=== PATIENT | male | born 1975 | race Caucasian/White ===

== ENCOUNTER 2019-11-30 22:27 | Emergency (ER) | payer OTHER, MEDICAID ==
[~2019-11-30] VITALS: Ht 167.6 cm; Wt 71.2 kg
[2019-11-30 22:41] VITALS: BP 122/86; Ht 167.6 cm; Wt 71.2 kg
== END 2019-11-30 23:30 | disposition home or self-care (01) ==
LOC: ED 22:27
DX: S13.4XXA Sprain of ligaments of cervical spine, initial encounter (principal); S33.5XXA Sprain of ligaments of lumbar spine, initial encounter; V49.49XA Driver injured in collision with other motor vehicles in traffic accident, initial encounter; Y93.I9 Activity, other involving external motion; Y92.488 Other paved roadways as the place of occurrence of the external cause; Y99.8 Other external cause status